=== PATIENT | female | born 1945 | race African-American/Black ===

== ENCOUNTER 2018-02-02 12:05 | Emergency (ER) | payer MEDICARE, BC ==
--- NOTE | 2018-02-02 13:09 | RAD ---
PORTABLE AP CHEST X-RAY: 02/02/2018 HISTORY: Syncope. COMPARISON: 08/01/2016. FINDINGS: There is linear and patchy parenchymal changes seen at the left lung base with minimal linear and pat angel densities in the right mid lung zone and right lung base. Pneumonia or aspiration pneumonitis at the left lung base cannot be excluded although atelectasis is also a differential consideration. Ca rdiac silhouette is magnified by projection but does appear mildly enlarged. The pulmonary vasculatu re is within normal limits. Lungs are clear. No other interval change. IMPRESSION: 1. Patchy interstitial and patchy parenchymal changes at left lung base which may be related to atele ctasis, pneumonia, or aspiration pneumonitis. 2. Subsegmental atelectasis at the right lung base. 3. Cardiomegaly. POS: BARNEY
[2018-02-02 13:46] LABS: Hemoglobin 10.4 g/dL (12.0-16.0); Mean Corpuscular HGB CONC 31.3 g/dL (32.0-36.0); Mean Corpuscular Hemoglobin 30.4 pg (27.0-31.0); Mean Corpuscular Volume 97.1 fl (81.0-99.0); Platelet Count 98 thou/uL (130-400); RBC Distribution Width 16.9 % (11.5-14.5); Red Blood Cell (RBC) Count 3.42 mill/uL (4.20-5.40); White Blood Cell (WBC) Count 10.7 thou/uL (4.8-10.8)
[2018-02-02 13:58] LABS: ALT (SGPT) Less than 7 U/L (8-55); AST (SGOT) 13 U/L (5-34); Albumin 3.6 g/dL (3.4-4.8); Alkaline Phosphatase 95 U/L (40-150); Anion Gap 20 mmol/L (10-20); BUN (Urea Nitrogen) 35 mg/dL (9.8-20.1); Bilirubin, Total 0.5 mg/dL (0.2-1.2); CK (CPK) 21 U/L (29-168); Calc. Creatinine Clearance 0 mL/min (70-130); Calcium 9.5 mg/dL (7.8-10.44); Carbon Dioxide 26 mmol/L (23-31); Chloride 92 mmol/L (98-107); Estimated GFR-MDRD 8; Globulin 3.3 g/dL (2.4-3.5); Glucose 104 mg/dL (83-110); Potassium 4.1 mmol/L (3.5-5.1); Protein, Total 6.9 g/dL (6.0-8.3); Sodium 134 mmol/L (136-145)
[2018-02-02 14:03] LABS: CKMB 0.7 ng/mL (0-6.6); Troponin I 0.096 ng/mL (< 0.028)
[2018-02-02 14:04] LABS: #Lymphocytes 0.9 thou/uL (1.20-3.40); #Monocytes 0.7 thou/uL (0.11-0.59); #Neutrophils 8.9 thou/uL (1.40-6.50); %Basophils 0.2 % (0.0-1.0); %Eosinophils 0.3 % (0.0-10.0); %Lymphocytes 8.8 % (21.0-51.0); %Monocytes 6.9 % (0.0-10.0); %Neutrophils 83.8 % (42.0-75.0); PLT Morphology Comment Appears Decreased
== END 2018-02-02 16:12 | disposition home or self-care (01) ==
LOC: ERS 12:05
DX: R55 Syncope and collapse (principal); E03.9 Hypothyroidism, unspecified; E78.5 Hyperlipidemia, unspecified; I13.2 Hypertensive heart and chronic kidney disease with heart failure and with stage 5 chronic kidney disease, or end stage renal disease; I50.9 Heart failure, unspecified; N18.6 End stage renal disease; I25.10 Atherosclerotic heart disease of native coronary artery without angina pectoris; M81.0 Age-related osteoporosis without current pathological fracture; E21.3 Hyperparathyroidism, unspecified; M48.00 Spinal stenosis, site unspecified
CPT/HCPCS: 36415; 71045; 80053; 82550; 82553; 84484; 85025; 93005

== ENCOUNTER 2018-02-04 11:08 | Inpatient (IN) | payer MEDICARE, BC ==
--- NOTE | 2018-02-04 12:14 | RAD ---
PORTABLE CHEST: HISTORY: Shortness of breath. COMPARISON: 02/02/2018 FINDINGS: Heart size is enlarged. There are some chronic appearing lung changes without evidence of overt fail ure or focal infiltrates. IMPRESSION: Cardiomegaly with some mild vascular prominence but no signs of overt failure. Linear change in the lung bases appears to represent scar. POS: OBIE
[2018-02-04 13:07] LABS: #Monocytes 0.5 thou/uL (0.11-0.59); #Neutrophils 4.1 thou/uL (1.40-6.50); %Basophils 0.1 % (0.0-1.0); %Eosinophils 0.6 % (0.0-10.0); %Monocytes 8.9 % (0.0-10.0); %Neutrophils 73.4 % (42.0-75.0); Hemoglobin 10.8 g/dL (12.0-16.0); Mean Corpuscular HGB CONC 31.4 g/dL (32.0-36.0); Mean Corpuscular Hemoglobin 30.5 pg (27.0-31.0); Mean Corpuscular Volume 97.1 fl (81.0-99.0); Mean Platelet Volume 11.1 fL (7.4-10.4); Platelet Count 100 thou/uL (130-400); RBC Distribution Width 16.9 % (11.5-14.5); Red Blood Cell (RBC) Count 3.55 mill/uL (4.20-5.40); White Blood Cell (WBC) Count 5.6 thou/uL (4.8-10.8)
[2018-02-04 13:32] LABS: ALT (SGPT) Less than 7 U/L (8-55); AST (SGOT) 10 U/L (5-34); Albumin 3.9 g/dL (3.4-4.8); Alkaline Phosphatase 95 U/L (40-150); Anion Gap 20 mmol/L (10-20); BUN (Urea Nitrogen) 48 mg/dL (9.8-20.1); Bilirubin, Total 0.5 mg/dL (0.2-1.2); Calc. Creatinine Clearance 0 mL/min (70-130); Calcium 9.7 mg/dL (7.8-10.44); Carbon Dioxide 28 mmol/L (23-31); Chloride 91 mmol/L (98-107); Estimated GFR-MDRD 6; Globulin 3.4 g/dL (2.4-3.5); Glucose 131 mg/dL (83-110); Potassium 4.2 mmol/L (3.5-5.1); Protein, Total 7.3 g/dL (6.0-8.3); Sodium 135 mmol/L (136-145)
--- NOTE | 2018-02-04 16:30 | PDOC.EVN ---
Event Note - Event Note Event Note: I personally evaluated the patient and discussed the management with Dr. Schultz on 02/04/18. I agree with the History, Examination, Assessment and Plan documented above with any addition or exceptions noted below. Patient noncompliant dialysis, is fluid overloaded. Hypoxia improved on O2. Dr. Ruano consulted.
[2018-02-04] MEDS ORDERED: Ondansetron ODT 4 MG TAB SL PRN (17:21)
[2018-02-04] MEDS ORDERED: Acetaminophen 325 MG TAB PO PRN ×2 (17:21→17:46)
[2018-02-04] MEDS ORDERED: Ondansetron HCl/PF 4 MG/2 ML Vial IVP PRN (17:21)
[2018-02-04] MEDS ORDERED: Dextrose 50% Abboject 50 ML SYRINGE SLOW IVP PRN (17:46)
[2018-02-04] MEDS ORDERED: Docusate 100 MG CAP PO PRN (17:46)
[2018-02-04] MEDS ORDERED: Nitroglycerin 0.4 MG TAB (25 Tab Bottle) SL PRN (17:46)
[2018-02-04] MEDS ORDERED: Ondansetron ODT 4 MG TAB PO PRN (17:46)
[2018-02-04] MEDS ORDERED: Dextrose 5% in Water 1,000 ML IV PRN (17:46)
[2018-02-04] MEDS ORDERED: HumaLOG 300 UNITS/3 ML VIAL SC PRN ×2 (17:46)
[2018-02-04 19:49] LABS: HBSAg Index 0.23 S/CO (0-0.99); Hep B Surf Ag Non-Reactive S/CO (NonReactive)
[2018-02-04] MEDS ORDERED: Simvastatin 40 MG TAB PO SCH (21:00)
[2018-02-05] MEDS: Heparin 5,000 UNITS/ML VIAL SC SCH ×2 (00:23→07:41)
[2018-02-05] MEDS: Isosorbide Dinitrate 20 MG TAB PO SCH ×2 (00:23→07:41)
[2018-02-05] MEDS: Sevelamer Carbonate 800 MG TAB PO SCH ×2 (05:21→07:41)
[2018-02-05] MEDS ORDERED: Levothyroxine Sodium 100 MCG TAB PO SCH (06:00)
--- NOTE | 2018-02-05 06:37 | HP-2 ---
DATE OF ADMISSION: 02/04/2018 Patient was seen at 2:57 p.m. PRIMARY CARE PHYSICIAN: Dr. Allan Leach. ATTENDING: Ivon Liao D.O. RESIDENT: Nando Schultz D.O. CODE STATUS: DNR. HISTORIAN: Patient. SPECIALIST: Dr. Ruano, Nephrology. CHIEF COMPLAINT: Needs dialysis. HISTORY OF PRESENT ILLNESS: This is a 72-year-old -[place] female with past medical history of end-stage renal disease on Friday, Friday, Friday dialysis. She reports she needs dialysis because she is short of breath from detox with even minimal activity. She has not had dialysis since last Friday, because her blood pressure has been too low. She also reports slow heart rate. She did report nausea, vomiting, diarrhea earlier in the week, which she thinks is due to eating bad salsa and it has now resolved. She does report generalized weakness. PAST MEDICAL HISTORY: Includes, 1. ESRD on dialysis. 2. Congestive heart failure. 3. Coronary artery disease, status post stent. 4. Peripheral vascular disease. 5. Sciatica. 6. Diabetes mellitus, type 2. 7. Osteoporosis. PAST SURGICAL HISTORY: 1. Patient reports she has 6 cardiac stents. 2. Dialysis fistula of the right arm. 3. Bilateral BKAs. ALLERGIES: No known drug allergies. HOME MEDICATIONS: 1. Aspirin 325 mg p.o. daily. 2. Zofran, no dose given. 3. Docusate 100 mg 2 caps p.o. daily at bedtime. 4. Nitrostat 0.4 mg tablet 1 tab sublingual every 5 minutes x3 doses for chest pain. 5. Renvela 800 mg 1 tab b.i.d. with meals. 6. Isosorbide dinitrate 10 mg p.o. b.i.d. 7. Levothyroxine 100 mcg p.o. daily. 8. Carvedilol 3.125 mg p.o. daily. 9. Clopidogrel 75 mg p.o. daily. 10. Simvastatin 40 mg p.o. daily. FAMILY HISTORY: Mother had an [place]. SOCIAL HISTORY: Patient is a former smoker. She quit more than 30 years ago. No history of alcohol or drug use. Occupation: She is disabled, . She lives with her brother in [place]. She has 3 children. REVIEW OF SYSTEMS: General: Negative for fever, chills, weight change, appetite change, sleep change, night sweats, fatigue. Eyes: Negative for vision change or eye pain. ENT: Negative for nasal congestion, rhinorrhea, or sore throat. Respiratory: Positive for cough. Negative for congestion. Positive for shortness of breath. Positive for exercise intolerance. Cardiovascular: Positive for orthopnea. Negative for chest pain, palpitations. Positive for orthopnea. Negative for PND, edema. GI: Negative for nausea, vomiting, diarrhea, constipation, abdominal pain, GI bleeding. : Negative for dysuria, polyuria. Skin: Negative for rashes, lesions, jaundice , itching. Musculoskeletal: Negative for pain, tenderness, stiffness, swelling. Neurologic: Positive for weakness. Negative for numbness, syncope, seizure. Psychiatric: Negative for anxiety or depression. PHYSICAL EXAMINATION: VITAL SIGNS: Blood pressure 127/76, pulse 52, respiratory rate 18, T-max 98.7, pulse oximetry 92% on 2 liters, current weight 65.77 kilograms. GENERAL: Patient is alert and oriented x4, in no apparent distress, well- developed and appropriately interactive. EYES: PERRLA, EOMI. Conjunctivae within normal limits. ENT: Tympanic membranes pearly carrero without bulging or erythema. Nasal mucosa within normal limits. Oropharynx within normal limits. NECK: Supple with no lymphadenopathy, thyromegaly, or bruit. CARDIOVASCULAR: Bradycardic, regular rhythm. No murmurs, gallops auscultated. Radial pulses palpable and equal bilaterally. RESPIRATORY: Normal effort, no retractions. Clear to auscultation bilaterally. SKIN: Warm, dry with no cyanosis or lesions. ABDOMEN: Soft, nontender to palpation. Bowel sounds positive x4. No mass or distention. EXTREMITIES: No clubbing, cyanosis, or edema. MUSCULOSKELETAL: Tone within normal limits. Muscle strength 5/5. Full range of motion. Patient has had bilateral [id number] amputations. NEURO: No focal deficits. Sensation within normal limits. Deep tendon reflexes 2+/4. Cranial nerves II-XII intact. GCS 15. PSYCHIATRIC: Mood and affect appropriate. LABORATORY DATA: 1. CBC: White blood cell count 5.6, hemoglobin 10.8, hematocrit 34.5, platelets 100. 2. CMP: Sodium 135, potassium 4.2, chloride 91, bicarbonate 28, BUN 48, creatinine 7.48, glucose 131, calcium 9.7. Total protein 7.3, albumin 3.9. AST 10, ALT 7, alkaline phosphatase 95, bilirubin 0.5. 3. EKG shows sinus bradycardia, it is unchanged from previous EKG. 4. Chest x-ray shows mild vascular prominence, otherwise no acute findings. ASSESSMENT AND PLAN: A 72-year-old -[place] female with end-stage renal disease on dialysis who presents with: 1. Acute fluid overload, placed in observation. Dr. Ruano was consulted for dialysis. He was in the emergency department to evaluate the patient at the time of my evaluation. She had no electrolyte abnormalities or respiratory distress. She was mildly hypoxic on arrival to the ED, resolved with oxygen supplementation. 2. End-stage renal disease on dialysis. Dr. Ruano consulted. 3. Hypertension. Home medications; however, we will hold Coreg and clonidine. 4. Asymptomatic bradycardia, Coreg. 5. Hyperlipidemia, home medications. 6. Hypothyroidism, home levothyroxine. 7. Coronary artery disease, home medications. 8. Congestive heart failure, mildly fluid overloaded dialysis, is scheduled for today. 9. Diabetes mellitus, type 2. Accu-Cheks and sliding scale insulin. 10. Code status: DNR. The patient expresses when I asked her if she had ever discussed the code status with her doctor before. 11. Activity: As tolerated. Fall precautions. 12. Prophylaxis. Heparin. DISPOSITION AND LENGTH OF STAY: Expect 1-day stay, patient will be placed in observation, anticipate discharge home after stay. Symptomatic medications will be provided. History of physical exam as well as management discussed with Dr. Ivon Liao. [facility] CENTERMarv
--- NOTE | 2018-02-05 08:56 | PDOC.FM ---
- Subjective Subjective: This morning patient states her dizziness is resolved totally. She denies any pain. She denies shortness of breath. She denies fevers, chills, or sweats. She denies palpiations or syncope since being in the hospital. She feels ready to go home. - Objective Vital Signs & Weight: Vital Signs (12 hours) Temp Pulse Resp BP Pulse Ox 02/05/18 07:44 98.0 F 62 18 02/05/18 07:30 98.3 F 65 16 125/80 92 L 02/05/18 04:09 98.0 F 62 18 130/73 92 L 02/05/18 00:00 98.3 F 61 20 118/76 92 L Result Diagrams: 02/04/18 12:56 02/04/18 12:56 <Isaac Bowie - Last Filed: 02/05/18 13:45> - Objective Vital Signs & Weight: Vital Signs (12 hours) Temp Pulse Resp BP Pulse Ox 02/05/18 11:35 98.2 F 64 16 129/67 97 02/05/18 07:44 98.0 F 62 18 02/05/18 07:30 98.3 F 65 16 125/80 92 L 02/05/18 04:09 98.0 F 62 18 130/73 92 L Result Diagrams: 02/04/18 12:56 02/04/18 12:56 <Home Jacobson - Last Filed: 02/05/18 16:03> Phys Exam - Physical Examination Constitutional: NAD HEENT: PERRLA, moist MMs Neck: no nodes, full ROM Respiratory: no wheezing, clear to auscultation bilateral Cardiovascular: RRR, no significant murmur Gastrointestinal: soft, non-tender, no distention, positive bowel sounds Musculoskeletal: no edema, pulses present Neurological: non-focal strength 4/4 in upper extremities Lymphatic: no nodes Psychiatric: normal affect, A&O x 3 Skin: no rash, cap refill <2 seconds <Isaac Bowie - Last Filed: 02/05/18 13:45> Dx/Plan (1) Status post below knee amputation of right lower extremity Code(s): Z89.511 - ACQUIRED ABSENCE OF RIGHT LEG BELOW KNEE Status: Acute (2) CAD (coronary artery disease) Code(s): I25.10 - ATHSCL HEART DISEASE OF [place] CORONARY ARTERY W/O ANG PCTRS Status: Chronic (3) Diabetes type 2, controlled Code(s): E11.9 - TYPE 2 DIABETES MELLITUS WITHOUT COMPLICATIONS Status: Chronic (4) Dyslipidemia Code(s): E78.5 - HYPERLIPIDEMIA, UNSPECIFIED Status: Chronic (5) ESRD (end stage renal disease) Code(s): N18.6 - END STAGE RENAL DISEASE Status: Chronic (6) Peripheral vascular disease of lower extremity with ulceration Code(s): I73.9 - PERIPHERAL VASCULAR DISEASE, UNSPECIFIED; L97.909 - NON-PRS CHRONIC ULC UNSP PRT OF UNSP LOW LEG W UNSP SEVERITY Status: Chronic - Plan Plan: Fluid overload 2/2 missed dialysis, ESRD - emergency dialysis last PM - lungs CTA this AM, patient denies weakness - Nephro consulted, recs appreciated - ok for d/c # HTN - currently on no HTN medications 2/2 to issues with syncope, bradycardia - reviewed w/ Dr. Ruano # HLD - statin # Hypothyroid - synthroid # Hx CAD - statin, ASA # CHF - currently on no HTN meds 2/2 issues with syncope, bradycardia # DM2 - SSI Dispo: ok for d/c today <Isaac Bowie - Last Filed: 02/05/18 13:45> Attending Addendum - Attending Addendum Date/Time: 02/05/18 1603 I personally evaluated the patient and discussed the management with Dr. Bowie. I agree with the History, Examination, Assessment and Plan documented above with any addition or exceptions noted below. <Home Jacobson - Last Filed: 02/05/18 16:03>
[2018-02-05] MEDS ORDERED: Aspirin 325 MG TAB PO SCH (09:00)
[2018-02-05] MEDS ORDERED: Clopidogrel Bisulfate 75 MG TAB PO SCH (09:00)
--- NOTE | 2018-02-05 10:02 | PRG ---
DATE OF SERVICE: 02/05/2018 The patient was seen and examined, seems to be doing much better. PHYSICAL EXAMINATION: VITAL SIGNS: Afebrile with temperature 98, pulse 62, respiratory rate 18, blood pressure 125/80. HEENT: Unremarkable with moist oral mucosa. Neck was supple. No conjunctival injection or icterus. CARDIOVASCULAR: First and second heart sounds were heard. RESPIRATORY: Clear to auscultation. DIGESTIVE: Revealed a benign abdomen with positive bowel sounds. EXTREMITIES: No peripheral edema. SKIN: No new gross rash. LYMPHATICS: No peripheral lymphadenopathy. IMPRESSION: 1. End-stage renal disease, hemodialysis dependent. 2. Syncope, likely in the context of symptomatic bradycardia/hypotension. 3. Peripheral vascular disease, status post bilateral amputation. PLAN: 1. The patient did very well with hemodialysis yesterday and from the renal standpoint, there is no further indication for renal replacement therapy. 2. The patient's antihypertensive medications have been on hold and patient is still maintaining goo d hemodynamics. Therefore, we will recommend discontinuing antihypertensive medications for now and will be followed up as an outpatient. 3. From the renal standpoint, the patient is good for discharge.
[2018-02-05 12:04] VITALS: BP 129/67; TEMP 98.2
[2018-02-06] MEDS ORDERED: Prevnar 13-Val Conj/PF 0.5 ML SYRINGE IM ONE (09:00)
--- NOTE | 2018-02-06 10:57 | DIS-2 ---
DATE OF ADMISSION: 02/04/2018 DATE OF DISCHARGE: 02/05/2018 RESIDENT: Dr. Isaac Bowie. ADMITTING ATTENDING: Dr. Joyce Arauz. DISCHARGE ATTENDING: Dr. Home Jacobson. CONSULTATIONS: Nephrology, Dr. Ruano. PROCEDURES: Hemodialysis. PRIMARY DIAGNOSIS: Acute fluid overload secondary to end-stage renal disease. SECONDARY DIAGNOSES: Hypertension, hyperlipidemia, hypothyroidism, history of coronary artery diseas e, congestive heart failure, and diabetes mellitus type 2. DISCHARGE MEDICATIONS: Cinacalcet 30 mg once daily, Plavix 75 mg once daily, Flexeril 10 mg t.i.d., Synthroid 100 mcg daily, nitroglycerin 0.4 mg p.r.n., atorvastatin 40 mg nightly, and tramadol 50 mg p.o. b.i.d. p.r.n. DISCONTINUED MEDICATIONS: Imdur 10 mg and carvedilol 3.125 mg. HISTORY OF PRESENT ILLNESS AND HOSPITAL COURSE: This is a 72-year-old -[place] female with p ast medical history of end-stage renal disease on Friday, Friday, Friday dialysis schedule reporte d to the ER stating that she needed dialysis because she was short of breath. She states that her la st dialysis appointment was missed because she was having syncope, it had been 5 days since she had h ad dialysis. The patient received emergent hemodialysis overnight. In the morning, the patient reported that she was feeling no dizziness, lightheadedness, nausea, or vomiting. She stated that she had no more swel ling than usual. I spoke to her literacy coach, Dr. Ruano, who recommended holding all blood pres sure medications at this time because of issues with syncope, bradycardia, and hypotension. He recom mends close follow up with PCP, Dr. Leach. DISPOSITION: Stable. DISCHARGE INSTRUCTIONS: 1. Location: Home. 2. Diet: Heart healthy. ACTIVITY: As tolerated. FOLLOWUP: Follow up with Dr. Allan Leach in 3-[address] Ruano, literacy coach in 1-2 weeks .
--- NOTE | 2018-02-06 14:43 | PQF ---
LOWELL MCCLOUD GABRIEL A MD [id number] [facility] [id number] CLINICAL DOCUMENTATION CLARIFICATION FORM: POST DISCHARGE Please exercise your independent, professional judgment in responding to the clarification form. Clinical indicators are provided on the bottom of this form for your review. Thank you. H&P states, "Acute fluid overload", "Congestive heart failure, mildly fluid overloaded, dialysis is scheduled for today". CXR 02/04 "Cardiomegaly with some mild vascular prominence but no signs of overt failure." Event Note 02/04 "Patient noncompliant dialysis, is fluid overloaded." PN 02/05 "Fluid overload 2/2 missed dialysis, ESRD. Emergency dialysis last PM".; "CHF currently on no HTN meds 2/2 issues with syncope, bradycardia" Please check appropriate box(s): [ x ] NON-CARDIOGENIC Fluid Overload due to __ESRD [ ] Compensated Heart Failure [ ] Decompensated Heart Failure [ ] TYPE: [ ] Systolic / HFrEF [ ] Diastolic / HFpEF [ ] Combined Systolic / Diastolic [ ]ACUITY [x ] Acute [ ] Acute on Chronic [ ] Chronic [ ] Other diagnosis [ ] Unable to determine In addition, please specify: Present on Admission (POA): [ x ] Yes [ ] No [ ] Unable to determine For continuity of documentation, please document condition throughout progress notes and discharge summary. Thank You. CLINICAL INDICATORS - SIGNS / SYMPTOMS / LABS Dyspnea, Hypoxia Peripheral edema Orthopnea / SOB / dyspnea Volume overload Missed dialysis RISKS: History of CAD/ischemic heart disease ESRD CHF Hypertension Diabetes TREATMENTS: Hemodialysis Emergent Cardiac monitoring / telemetry Oxygen (This form is maintained as a part of the permanent medical record) 2014 [employer], [employer]. All Rights Reserved [email or web address] [phone] [place]
--- NOTE | 2018-02-07 17:34 | EKG ---
Test Reason : Blood Pressure : / mmHG Vent. Rate : 056 BPM Atrial Rate : 056 BPM P-R Int : 154 ms QRS Dur : 142 ms QT Int : 498 ms P-R-T Axes : 094 220 -69 degrees QTc Int : 480 ms Suspect arm lead reversal, interpretation assumes no reversal Sinus bradycardia Right bundle branch block , plus right ventricular hypertrophy Possible Lateral infarct , age undetermined T wave abnormality, consider inferior ischemia Abnormal ECG Confirmed by HOWARD RONQUILLO, KEVIN ([id number]), news editor YISEL COLON ([id number]) on 02/07/2018 5:33:48 PM Referred By: Confirmed By:KEVIN LAWRENCE MD
== END 2018-02-05 13:43 | disposition home health service (06) | DRG 640 ==
LOC: ERS 11:08 → T4-A 14:28
PROVIDERS: ADMIT Family Medicine; ATTEND Family Medicine
PROC: 5A1D70Z Performance of Urinary Filtration, Intermittent, Less than 6 Hours Per Day (ICD-10-PCS; principal; 2018-02-04)
DX: E87.70 Fluid overload, unspecified (principal); N18.6 End stage renal disease; I13.2 Hypertensive heart and chronic kidney disease with heart failure and with stage 5 chronic kidney disease, or end stage renal disease; E11.22 Type 2 diabetes mellitus with diabetic chronic kidney disease; E11.51 Type 2 diabetes mellitus with diabetic peripheral angiopathy without gangrene; I95.9 Hypotension, unspecified; R00.1 Bradycardia, unspecified; R09.02 Hypoxemia; Z91.15 Patient's noncompliance with renal dialysis; Z87.891 Personal history of nicotine dependence; Z89.512 Acquired absence of left leg below knee; Z89.511 Acquired absence of right leg below knee; I25.10 Atherosclerotic heart disease of native coronary artery without angina pectoris; Z95.5 Presence of coronary angioplasty implant and graft; Z99.2 Dependence on renal dialysis; E78.5 Hyperlipidemia, unspecified; E03.9 Hypothyroidism, unspecified; Z66 Do not resuscitate; R55 Syncope and collapse
CPT/HCPCS: 36415; 36416; 71045; 80053; 82550; 82553; 84484; 85025; 87340; 90935; 93005; G0257; J1644

== ENCOUNTER 2018-03-19 09:44 | Day surgery (SDC) | payer MEDICARE, BC ==
--- NOTE | 2018-03-19 14:53 | OP ---
PROCEDURE PERFORMED: Esophagogastroduodenoscopy with biopsy. SURGEON: Jovi Goldsmith M.D. ANESTHESIA: Medication given per Anesthesiology Department. PREOPERATIVE DIAGNOSIS: History of melena suggestive of upper gastrointestinal bleed. POSTOPERATIVE DIAGNOSES: 1. Severe mid body erosive gastritis. 2. A 4 mm antral ulcer. PROCEDURE IN DETAIL: A written consent was obtained prior to procedure. After adequate sedation, th e forward-viewing endoscope was advanced down the stomach under direct vision to the second portion o f duodenum. Both the second portion and the bulb appeared normal. The pylorus was patent. A 4 mm u lcer was seen in the gastric antrum with black eschar. In the mid body, linear erosive erosions were seen. The cardiac and fundus appeared normal. Retroflexion did not need any abnormality. Biopsies obtained from antrum for H. pylori. The GE junction was located at 40 cm from the incisors. The di stal, mid, and upper esophagus appeared normal. ASSESSMENT: 1. Mid body erosive gastritis, moderate to severe. 2. A 4 mm antral ulcer, no stigmata of bleeding. PLAN: 1. Await H. pylori, resolved. 2. Pantoprazole 40 mg p.o. q.a.m.
[2018-03-19] MEDS ORDERED: PROPOFOL 200 MG/20 ML VIAL ONE (16:34)
[2018-03-19] MEDS ORDERED: Lidocaine 1% PF 5 ML VIAL ONE (16:34)
== END 2018-03-19 14:00 | disposition home or self-care (01) ==
LOC: SDC 09:44
PROVIDERS: ATTEND Internal Medicine Gastroenterology
PROC: 0DB68ZX Excision of Stomach, Via Natural or Artificial Opening Endoscopic, Diagnostic (ICD-10-PCS; principal; 2018-03-19)
DX: K29.50 Unspecified chronic gastritis without bleeding (principal); K25.7 Chronic gastric ulcer without hemorrhage or perforation; I13.0 Hypertensive heart and chronic kidney disease with heart failure and stage 1 through stage 4 chronic kidney disease, or unspecified chronic kidney disease; E11.22 Type 2 diabetes mellitus with diabetic chronic kidney disease; N18.9 Chronic kidney disease, unspecified; I50.9 Heart failure, unspecified; I25.10 Atherosclerotic heart disease of native coronary artery without angina pectoris; E78.00 Pure hypercholesterolemia, unspecified; E03.9 Hypothyroidism, unspecified; Z79.82 Long term (current) use of aspirin; Z79.899 Other long term (current) drug therapy; Z98.890 Other specified postprocedural states; Z86.010 Personal history of colon polyps
CPT/HCPCS: 36416; 88305; 88312; J2001; J2704

== ENCOUNTER 2018-12-05 09:38 | Emergency (ER) | payer MEDICARE, BC | END 2018-12-05 12:28 | disposition home or self-care (01) | LOC: ERS 09:38 | DX: T82.838A Hemorrhage due to vascular prosthetic devices, implants and grafts, initial encounter (principal); E11.9 Type 2 diabetes mellitus without complications; Z86.718 Personal history of other venous thrombosis and embolism; E03.9 Hypothyroidism, unspecified; E05.90 Thyrotoxicosis, unspecified without thyrotoxic crisis or storm; I13.2 Hypertensive heart and chronic kidney disease with heart failure and with stage 5 chronic kidney disease, or end stage renal disease; N18.6 End stage renal disease; I50.9 Heart failure, unspecified; I25.10 Atherosclerotic heart disease of native coronary artery without angina pectoris; M81.0 Age-related osteoporosis without current pathological fracture; Z79.82 Long term (current) use of aspirin; Z79.899 Other long term (current) drug therapy | CPT/HCPCS: 99284 ==

== ENCOUNTER 2019-01-13 20:06 | Emergency (ER) | payer MEDICARE, BC ==
--- NOTE | 2019-01-13 20:47 | RAD ---
PORTABLE CHEST: 01/13/19 HISTORY: Chest pain, left arm pain. COMPARISON: 02/04/18 study. A right subclavian and brachiocephalic stent is present. The heart size is enlarged. Pulmonary vessel s are prominent but stable as compared to the prior exam. No overt edema. Coronary stent is noted. IMPRESSION: 1. Cardiomegaly. 2. Stable overall appearance to the chest. 1. POS: [facility]
[2019-01-13 21:01] LABS: #Lymphocytes 0.9 thou/uL (1.20-3.40); #Monocytes 0.4 thou/uL (0.11-0.59); #Neutrophils 2.5 thou/uL (1.40-6.50); %Basophils 0.5 % (0.0-1.0); %Eosinophils 1.1 % (0.0-10.0); %Lymphocytes 23.3 % (21.0-51.0); %Monocytes 10.8 % (0.0-10.0); %Neutrophils 64.2 % (42.0-75.0); Hemoglobin 12.1 g/dL (12.0-16.0); Mean Corpuscular HGB CONC 29.9 g/dL (32.0-36.0); Mean Corpuscular Hemoglobin 27.3 pg (27.0-31.0); Mean Corpuscular Volume 91.1 fL (78.0-98.0); Platelet Count 93 thou/uL (130-400); RBC Distribution Width 16.3 % (11.5-14.5); Red Blood Cell (RBC) Count 4.45 mill/uL (4.20-5.40); White Blood Cell (WBC) Count 3.9 thou/uL (4.8-10.8)
[2019-01-13 21:20] LABS: ALT (SGPT) Less than 7 U/L (8-55); AST (SGOT) 7 U/L (5-34); Albumin 3.8 g/dL (3.4-4.8); Alkaline Phosphatase 100 U/L (40-150); Anion Gap 14 mmol/L (10-20); BUN (Urea Nitrogen) 11 mg/dL (9.8-20.1); Bilirubin, Total 0.5 mg/dL (0.2-1.2); Calc. Creatinine Clearance 0 mL/min (70-130); Calcium 10.1 mg/dL (7.8-10.44); Carbon Dioxide 35 mmol/L (23-31); Chloride 94 mmol/L (98-107); Estimated GFR-MDRD 15; Globulin 3.2 g/dL (2.4-3.5); Glucose 99 mg/dL (83-110); Potassium 3.6 mmol/L (3.5-5.1)
[2019-01-13 21:24] LABS: Sodium 139 mmol/L (136-145)
[2019-01-13 21:40] LABS: CKMB 1.2 ng/mL (0-6.6)
== END 2019-01-13 22:03 | disposition left against medical advice (07) ==
LOC: ERS 20:06
DX: I25.10 Atherosclerotic heart disease of native coronary artery without angina pectoris (principal); Z86.718 Personal history of other venous thrombosis and embolism; E03.9 Hypothyroidism, unspecified; E78.5 Hyperlipidemia, unspecified; I13.2 Hypertensive heart and chronic kidney disease with heart failure and with stage 5 chronic kidney disease, or end stage renal disease; I50.9 Heart failure, unspecified; N18.6 End stage renal disease; Z99.2 Dependence on renal dialysis; E11.22 Type 2 diabetes mellitus with diabetic chronic kidney disease; M81.0 Age-related osteoporosis without current pathological fracture; Z79.899 Other long term (current) drug therapy; Z79.82 Long term (current) use of aspirin
CPT/HCPCS: 36415; 71045; 80053; 82553; 84484; 85025; 93005

== ENCOUNTER 2019-01-20 09:50 | Observation (INO) | payer MEDICARE, BC ==
[2019-01-20] MEDS ORDERED: Lidocaine 1% (PF) 30 ML VIAL ONE (10:28)
[2019-01-20 10:41] LABS: INR-International Normal Ratio 1.2; PTT 33.3 SEC (22.9-36.1)
[2019-01-20 11:04] LABS: ALT (SGPT) Less than 7 U/L (8-55); AST (SGOT) 7 U/L (5-34); Albumin 3.4 g/dL (3.4-4.8); Alkaline Phosphatase 82 U/L (40-150); Anion Gap 15 mmol/L (10-20); BUN (Urea Nitrogen) 20 mg/dL (9.8-20.1); Bilirubin, Total 0.4 mg/dL (0.2-1.2); Calc. Creatinine Clearance 0 mL/min (70-130); Carbon Dioxide 29 mmol/L (23-31); Chloride 96 mmol/L (98-107); Estimated GFR-MDRD 9; Globulin 2.9 g/dL (2.4-3.5); Glucose 140 mg/dL (83-110); Potassium 4.2 mmol/L (3.5-5.1); Protein, Total 6.3 g/dL (6.0-8.3); Sodium 136 mmol/L (136-145)
[2019-01-20 11:09] LABS: #Eosinphils 0.1 thou/uL (0.0-0.7); #Lymphocytes 1.3 thou/uL (1.20-3.40); #Monocytes 0.4 thou/uL (0.11-0.59); #Neutrophils 2.4 thou/uL (1.40-6.50); %Eosinophils 1.7 % (0.0-10.0); %Lymphocytes 31.2 % (21.0-51.0); %Monocytes 9.5 % (0.0-10.0); %Neutrophils 56.7 % (42.0-75.0); Band 1 % (5-11); Eosinophils 5 % (0-10); Hemoglobin 10.2 g/dL (12.0-16.0); Hypochromia SLIGHT = 6-15 cells (100X) (0-5/hpf); Lymphocytes 30 % (21-51); MDiff Complete? YES; Mean Corpuscular HGB CONC 29.1 g/dL (32.0-36.0); Mean Corpuscular Hemoglobin 26.8 pg (27.0-31.0); Mean Corpuscular Volume 92.2 fL (78.0-98.0); Mean Platelet Volume 12.5 fL (7.4-10.4); Monocytes 8 % (0-10); Neutrophil 54 % (42-75); Platelet Count 121 thou/uL (130-400); Platelet Morphology Comment Appears Decreased; Polychromasia SLIGHT = 2-3 cells (100X) (0-2/hpf); RBC Distribution Width 16.4 % (11.5-14.5); Reactive Lymphocytes 1 % (0-10); Red Blood Cell (RBC) Count 3.82 mill/uL (4.20-5.40); Reflex for Review?? YES; Schistocytes MODERATE= 6-15 cells (100X) (0-1/hpf); White Blood Cell (WBC) Count 4.2 thou/uL (4.8-10.8)
--- NOTE | 2019-01-20 11:33 | PDOC.FPRHP ---
- History of Present Illness Chief Complaint: bleeding fistula History of Present Illness: 73yo female with pmh of ESRD on HD presented to ED for evaluation of bleeding fistula. Follows with Dr Ruano outpt. HD MWF. Has not had dialysis since Friday. She states she had not cleaned fistula site for 2 weeks and when she started to clean it this morning it started bleeding. She states this has happened x2 before. She states she did have chills today and dizziness this AM. EMS placed a tourniquet about 0857. Stitch placed by Dr Ruano in ED with hemostasis. Plan for fistula revision in AM. - Allergies/Adverse Reactions Allergies Allergy/AdvReac Type Severity Reaction Status Date / Time No Known Drug Allergies Allergy Verified 03/18/18 15:13 - Home Medications Medication Instructions Recorded Confirmed Type Cinacalcet HCl [Sensipar] 30 mg PO DAILY 08/20/16 03/18/18 History Cyclobenzaprine [Flexeril] 10 mg PO TID PRN 08/20/16 03/18/18 History Levothyroxine Sodium [Synthroid] 100 mcg PO HS 08/20/16 03/18/18 History Nitroglycerin [Nitrostat] 0.4 mg SL Q5MIN PRN 08/20/16 03/18/18 History Simvastatin [Zocor] 40 mg PO HS 08/20/16 03/18/18 History traMADol HCl [Tramadol HCl] 50 mg PO BID PRN 08/20/16 03/18/18 History Acetaminophen 500 mg PO Q6HR PRN 03/18/18 03/18/18 History Aspirin 325 mg PO DAILY 03/18/18 03/18/18 History Carvedilol 1 tab PO BID 03/18/18 03/18/18 History Dicyclomine HCl 20 mg PO DAILY PRN 03/18/18 03/18/18 History Hydrocortisone [Procto-Med Hc] 1 applic [place] DAILY PRN 03/18/18 03/18/18 History Isosorbide Dinitrate [Isordil] 1 tab PO HS 03/18/18 03/18/18 History Ondansetron [Zofran ODT] 4 mg PO Q8HR PRN 03/18/18 03/18/18 History Sevelamer Carbonate [Renvela] 1 tab PO DAILY 03/18/18 03/18/18 History - History PMHx: DM2, PVD, gangrene, sacral decub ulcer, dementia, dvt, gi bleed, IBS, CHF , HLD, HTN, ESRD on dialysis MWF, CAD PSHx: 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 denies: weight/appetite/sleep changes Eyes: denies: eye pain, vision changes ENT: denies: nasal congestion, rhinorrhea Respiratory: denies: cough, shortness of breath Cardiovascular: denies: chest pain, palpitation Gastrointestinal: reports: diarrhea, constipation. denies: nausea, vomiting Genitourinary: denies: dysuria, polyuria Skin: denies: rashes, lesions, itching Musculoskeletal: reports: other (bilateral BKA) Neurological: denies: numbness, seizure, weakness - Vital signs BP: 139/94 HR: 58 RR: 20 Tmax: 98.0 Pox: 100% on 2L Wt: 63.5kg - Physical Exam Constitutional: NAD, awake, alert and oriented, well developed HEENT: normocephalic and atraumatic, conjunctiva clear, other (poor dentition, dry MM) Neck: supple, trachea midline Heart: RRR, no murmurs/rubs/gallops Lungs: CTAB, no respiratory distress, good air movement Abdomen: soft, non-tender, bowel sounds present -Musculoskeletal: bilateral BKAs Neurological: no focal deficit Skin: good turgor, other (Right upper arm with bandage over fistula. Thrill felt in the right antecubital fossa) Psychiatric: normal mood and affect, good judgment and insight, intact recent and remote memory FMR H&P: Results - Labs Result Diagrams: 01/20/19 10:17 01/20/19 10:17 Lab results: WBC 4.2 thou/uL (4.8-10.8) L 01/20/19 10:17 Hgb 10.2 g/dL (12.0-16.0) L 01/20/19 10:17 Hct 35.2 % (36.0-47.0) L 01/20/19 10:17 MCV 92.2 fL (78.0-98.0) 01/20/19 10:17 Plt Count 121 thou/uL (130-400) L 01/20/19 10:17 Neutrophils % 56.7 % (42.0-75.0) 01/20/19 10:17 Band Neuts % (Manual) 1 % (5-11) L 01/20/19 10:17 Sodium 136 mmol/L (136-145) 01/20/19 10:17 Potassium 4.2 mmol/L (3.5-5.1) 01/20/19 10:17 Chloride 96 mmol/L (98-107) L 01/20/19 10:17 Carbon Dioxide 29 mmol/L (23-31) 01/20/19 10:17 BUN 20 mg/dL (9.8-20.1) 01/20/19 10:17 Creatinine 5.44 mg/dL (0.6-1.1) H 01/20/19 10:17 Glucose 140 mg/dL (83-110) H 01/20/19 10:17 Calcium 10.0 mg/dL (7.8-10.44) 01/20/19 10:17 Total Bilirubin 0.4 mg/dL (0.2-1.2) 01/20/19 10:17 AST 7 U/L (5-34) 01/20/19 10:17 ALT Less than 7 U/L (8-55) L 01/20/19 10:17 Alkaline Phosphatase 82 U/L (40-150) 01/20/19 10:17 Serum Total Protein 6.3 g/dL (6.0-8.3) 01/20/19 10:17 Albumin 3.4 g/dL (3.4-4.8) 01/20/19 10:17 FMR H&P: A/P - Problem List (1) Bleeding pseudoaneurysm of right brachiocephalic AV fistula Current Visit: Yes Status: Acute Code(s): T82.838A - HEMORRHAGE DUE TO VASCULAR PROSTH DEV/GRFT, INIT (2) CHF (congestive heart failure) Current Visit: Yes Status: Acute Code(s): I50.9 - HEART FAILURE, UNSPECIFIED (3) Status post below knee amputation of right lower extremity Current Visit: No Status: Acute Code(s): Z89.511 - ACQUIRED ABSENCE OF RIGHT LEG BELOW KNEE (4) CAD (coronary artery disease) Current Visit: No Status: Chronic Code(s): I25.10 - ATHSCL HEART DISEASE OF [place] CORONARY ARTERY W/O ANG PCTRS (5) Diabetes type 2, controlled Current Visit: No Status: Chronic Code(s): E11.9 - TYPE 2 DIABETES MELLITUS WITHOUT COMPLICATIONS (6) Dyslipidemia Current Visit: No Status: Chronic Code(s): E78.5 - HYPERLIPIDEMIA, UNSPECIFIED (7) ESRD (end stage renal disease) Current Visit: No Status: Chronic Code(s): N18.6 - END STAGE RENAL DISEASE (8) Hypertension Current Visit: No Status: Chronic Code(s): I10 - ESSENTIAL (PRIMARY) HYPERTENSION (9) Hypothyroidism Current Visit: No Status: Chronic Code(s): E03.9 - HYPOTHYROIDISM, UNSPECIFIED (10) Peripheral vascular disease of lower extremity with ulceration Current Visit: No Status: Chronic Code(s): I73.9 - PERIPHERAL VASCULAR DISEASE, UNSPECIFIED; L97.909 - NON-PRS CHRONIC ULC UNSP PRT OF UNSP LOW LEG W UNSP SEVERITY - Plan Ms Pepe is a 73yo female who presents for AV fistula bleed AV fistula bleed - Dr Ruano called from ED, stitched placed which controlled bleed - Recommended fistula revision - Dr Baldwin consulted, surgery tomorrow ESRD on HD - Dialysis as above - Has missed 2 sessions of dialysis - Renal high protein diet DM - Reportedly controlled on PO meds - SSI & hypoglycemic protocol - ACHS accuchecks CHF - Strict I&Os, 1800ml fluid restriction, daily wt - HH diet CAD - hold ASA, plavix. Continue Coreg - s/p 6 stent placement Code Status: DNR DVT ppx: hold due to bleeding and surgery schedule in AM PCP: Hany FMThiago H&P: Upper Level - Pertinent history 73 y/o F with ESRD, CHF, DM presents via EMS 2/2 bleeding fistula. Reportedly picked a scab and it began to bleed. Denies other complaints other than chills that occurred today. Sees nephro for HD MWF. Denies any other complaints. States she was told by the ED 2w ago she should be admitted, but left AMA. Currently stable in ED with bandages on L arm. A&Ox4 with VSS. - Pertinent findings PE GEN: NAD, CARDIO: RRR, No MRG LUNGS: CTAB, No wheezes MSK: b/l BKA SKIN: L fistula with bandage overlying w/o blood visualized. - Plan Date/Time: 01/20/19 5972 I, Blake Calloway, have evaluated this patient and agree with findings/plan as outlined by hospital intern resident. Pertinent changes/additions are listed here. 1. Acute Hemorrhage of AV fistula on L upper extremity- Dr Ruano has placed sutures over lesion and now hemorrhage has resolved. Dr Baldwin with surgery to operate on patient tomorrow. NPO at midnight. 2. ESRD on HD MWF - Will resume scheduled HD per nephrology. Tomorrow after surgery. 3. NIDDM - SSI & hypoglycemic protocol, ACHS accuchecks 4. CHF - I do not see an echocardiogram for her so unsure of the status. Will continiue to monitor I&Os, weight, and continue fluid restriction. Does not seem to have acute issues. 5. CAD - Hold asa, plavix, continue coreg. Hx/o 6 stent placements 6. PVD - S/p BKA x2, pt unable to ambulate. Code Status: DNR - discussed in detail with patient today DVT ppx: holding pharmacological ppx Addendum - Attending - Attending Attestation Date/Time: 01/20/19 4734 I personally evaluated the patient and discussed the management with Dr. Dougherty /Elli. I agree with the History, Examination, Assessment and Plan documented above with any addition or exceptions noted below. Patient stable. No active bleeding. Plan for surgery tomorrow for fistula revision. Continue home meds with exception of antiplatelet therapy. NPO at midnight.
[2019-01-20] MEDS ORDERED: Dextrose 50% Abboject 50 ML SYRINGE SLOW IVP PRN (12:06)
[2019-01-20] MEDS ORDERED: Dextrose 5% in Water 1,000 ML IV PRN (12:06)
[2019-01-20] MEDS ORDERED: HumaLOG 300 UNITS/3 ML VIAL SC PRN (12:06)
[2019-01-20] MEDS ORDERED: Acetaminophen 500 MG TAB ONE (12:10)
[2019-01-20] MEDS ORDERED: Acetaminophen 325 MG TAB PO PRN (16:50)
[2019-01-20] MEDS ORDERED: Isosorbide Mononitrate 20 MG TAB PO SCH (21:00)
--- NOTE | 2019-01-21 00:23 | CON ---
DATE OF CONSULTATION: 01/20/2019 REASON FOR CONSULT: Bleeding fistula. HISTORY: Ms. Pepe is a 73-year-old woman known to me from previous admissions. She has multiple medical problems including end-stage renal failure and peripheral vascular disease. She has been having problems with bleeding from her fistula for sometime and states that they constantly leave a bandage on it to keep it from bleeding. She took her bandage off at home today, which she does not usually do and it started bleeding. EMS came and placed a tourniquet and brought her into the ER. Dr. Ruano saw her in the emergency department and placed a suture, and she has not had any problems with bleeding since then. She states they have not been able to use that part of the fistula because of the bleeding issues. She did have some chills and dizziness this morning, but has otherwise been in her usual state of health. She states that she has body aches all over, but this has been going on for sometime. PAST MEDICAL HISTORY: Diabetes, peripheral vascular disease, deep venous thrombosis, GI bleeding, congestive heart failure, hypertension, end-stage renal failure, coronary artery disease, hypertensive cardiomyopathy, hypothyroidism, hyperlipidemia, history of GI bleeding. ALLERGIES: NO KNOWN DRUG ALLERGIES. PAST SURGICAL HISTORY: Right upper arm AV fistula placed in [place] 13 years ago and still functioning. Angioplasty and stenting of the right superficial femoral artery. Coronary artery angioplasty and stenting multiple times, bilateral lower extremity amputations, cataract surgery, endoscopy for GI bleeding. FAMILY HISTORY: Noncontributory. SOCIAL HISTORY: She does have a past history of tobacco use, but quit many years ago. She does not drink or use illicit drugs. REVIEW OF SYSTEMS: She has alternating diarrhea and constipation. Review of systems was otherwise negative except per HPI. PHYSICAL EXAMINATION: VITAL SIGNS: The patient has been afebrile with normal vital signs, saturating well on room air. GENERAL: Reveals a chronically ill-appearing woman, in no acute distress. She is not flushed or toxic in appearance. She is not jaundiced or icteric. HEENT: Unremarkable. NECK: Supple without lymphadenopathy or thyroid nodules. HEART: Regular in its rate and rhythm. I do not appreciate any murmurs, rubs, or gallops. LUNGS: Clear to auscultation. She has good air movement. ABDOMEN: Soft, nontender, and nondistended. No palpable masses or hernias. She has bilateral healed lower extremity amputations. Right arm has a good thrill in the upper arm cephalic fistula. Suture in the upper portion of the fistula is intact and there is no bleeding. She may have a small pseudoaneurysm at this location, but it is not large or eroding the skin. NEURO: No focal deficits. PSYCHIATRIC: Alert, oriented, and appropriate. LABORATORY DATA: White count is normal. Platelets are slightly low. Hematocrit is stable compared to prior admissions. BUN and creatinine are both elevated, but other electrolytes are okay. HOME MEDICATIONS: 1. Sensipar. 2. Flexeril. 3. Synthroid. 4. Zocor. 5. Aspirin. 6. Carvedilol. 7. Isordil. 8. Renvela. 9. She also has multiple p.r.n. medications including nitroglycerin tablets, tramadol, dicyclomine, Proctofoam, and Zofran. ASSESSMENT: Recurrent bleeding from right upper arm fistula. She likely has a small pseudoaneurysm at this location. I have recommended operative repair and Z-plasty closure of the defect. She has adequate length of fistula below this to continue with dialysis using her fistula and should not require placement of a catheter. Inherent risks include, but are not limited to bleeding, infection, risks of anesthesia, damage to the fistula and need for other procedures. She understands and accepts these risks and wishes to proceed. She has been proceeded for the operating room tomorrow since she ate breakfast this morning. All of her questions were answered. Job ID: [id number]
[2019-01-21] MEDS ORDERED: Ondansetron ODT 4 MG TAB SL PRN (02:29)
--- NOTE | 2019-01-21 03:25 | CON ---
DATE OF CONSULTATION: CONSULTING PHYSICIAN: Bindu Jaffe MD REQUESTING PHYSICIAN: ER physician and [facility]. IMPRESSION: 1. End-stage renal disease, on hemodialysis. 2. Access bleed, status post dislodgement of a scab on the patient's access. 3. Peripheral vascular disease, status post amputation. PLAN: 1. There is no emergency indication of dialysis today; therefore we will allow this patient to rest. 2. Reevaluate this patient's hemoglobin in the next 24 hours vis-a-vis the possibility of severe anemia in this patient. 3. Surgical consult for revision of the fistula. 4. Possible dialysis status post surgery. HISTORY: Is that of a 73-year-old female patient with end-stage renal disease, hemodialysis dependent, Friday, Friday and Friday who was getting ready for dialysis and scab overlying the access dislodged resulting in a profuse bleeding. The patient was then brought to the ER via EMS and decision was taken to secure the area of bleed with a pursestring suture prior to transferring the patient to Surgical Service. PAST MEDICAL HISTORY: Significant for end-stage renal disease, hypertension, peripheral vascular disease, type 2 diabetes, dyslipidemia. MEDICATIONS: Reviewed and as documented on [employer]. ALLERGIES: NO KNOWN DRUG ALLERGIES. FAMILY HISTORY: Not significantly related to presenting illness. REVIEW OF SYSTEMS: As documented in the body of history. All other systems were reviewed. PHYSICAL EXAMINATION: GENERAL: The patient was found not to be in any obvious distress, although we are still concerned because of the amount of blood loss, otherwise hemodynamically stable. HEENT: Unremarkable. CARDIOVASCULAR SYSTEM: First and second heart sounds were heard. RESPIRATORY SYSTEM: Clear to auscultation. RESPIRATORY: Clear to auscultation. DIGESTIVE: Revealed a benign abdomen with positive bowel sounds. EXTREMITIES: No peripheral edema. SKIN: No new gross rash. LYMPHATICS: No peripheral lymphadenopathy. SUMMARY: A 73-year-old female patient with end-stage renal disease, hemodialysis dependent who presented here status post access bleeding. Thank you for this consultation, I will follow with you. Job ID: [id number]
[2019-01-21] MEDS ORDERED: Levothyroxine Sodium 100 MCG TAB PO SCH (06:00)
[2019-01-21] MEDS ORDERED: Nitroglycerin 0.4 MG TAB (25 Tab Bottle) SL PRN (06:11)
--- NOTE | 2019-01-21 06:14 | PDOC.FM ---
- Objective MAR Reviewed: Yes Vital Signs & Weight: Vital Signs (12 hours) Temp Pulse Resp BP Pulse Ox 01/21/19 04:00 97.5 F L 82 20 99 01/21/19 00:00 97.5 F L 86 20 109/67 100 01/20/19 19:36 97.3 F L 86 20 101/65 100 Weight Weight 60.47 kg Result Diagrams: 01/20/19 10:17 01/21/19 06:19 Dx/Plan (1) Bleeding pseudoaneurysm of right brachiocephalic AV fistula Code(s): T82.838A - HEMORRHAGE DUE TO VASCULAR PROSTH DEV/GRFT, INIT Status: Acute (2) CHF (congestive heart failure) Code(s): I50.9 - HEART FAILURE, UNSPECIFIED Status: Acute (3) Status post below knee amputation of right lower extremity Code(s): Z89.511 - ACQUIRED ABSENCE OF RIGHT LEG BELOW KNEE Status: Acute (4) CAD (coronary artery disease) Code(s): I25.10 - ATHSCL HEART DISEASE OF [place] CORONARY ARTERY W/O ANG PCTRS Status: Chronic (5) Diabetes type 2, controlled Code(s): E11.9 - TYPE 2 DIABETES MELLITUS WITHOUT COMPLICATIONS Status: Chronic (6) Dyslipidemia Code(s): E78.5 - HYPERLIPIDEMIA, UNSPECIFIED Status: Chronic (7) ESRD (end stage renal disease) Code(s): N18.6 - END STAGE RENAL DISEASE Status: Chronic (8) Hypertension Code(s): I10 - ESSENTIAL (PRIMARY) HYPERTENSION Status: Chronic (9) Hypothyroidism Code(s): E03.9 - HYPOTHYROIDISM, UNSPECIFIED Status: Chronic (10) Peripheral vascular disease of lower extremity with ulceration Code(s): I73.9 - PERIPHERAL VASCULAR DISEASE, UNSPECIFIED; L97.909 - NON-PRS CHRONIC ULC UNSP PRT OF UNSP LOW LEG W UNSP SEVERITY Status: Chronic
[2019-01-21 07:06] LABS: ALT (SGPT) Less than 7 U/L (8-55); AST (SGOT) 7 U/L (5-34); Albumin 3.2 g/dL (3.4-4.8); Alkaline Phosphatase 75 U/L (40-150); Anion Gap 22 mmol/L (10-20); BUN (Urea Nitrogen) 26 mg/dL (9.8-20.1); Bilirubin, Total 0.4 mg/dL (0.2-1.2); Calc. Creatinine Clearance 8 mL/min (70-130); Calcium 9.8 mg/dL (7.8-10.44); Carbon Dioxide 21 mmol/L (23-31); Chloride 96 mmol/L (98-107); Estimated GFR-MDRD 8; Globulin 2.5 g/dL (2.4-3.5); Glucose 107 mg/dL (83-110); Potassium 4.8 mmol/L (3.5-5.1); Protein, Total 5.7 g/dL (6.0-8.3); Sodium 134 mmol/L (136-145)
[2019-01-21 07:17] VITALS: BP 139/56; TEMP 97.4
[2019-01-21 07:22] LABS: HBSAg Index 0.28 S/CO (0-0.99); Hep B Surf Ag Non-Reactive S/CO (NonReactive)
[2019-01-21] MEDS ORDERED: Lorazepam 2 MG/ML VIAL ONE (07:24)
[2019-01-21] MEDS ORDERED: Sevelamer Carbonate 800 MG TAB PO SCH (08:00)
--- NOTE | 2019-01-21 08:15 | PDOC.EVN ---
Event Note - Event Note Event Note: I was called by the residents for a code blue. A code green was called for a seizure previously. DNAR was confirmed. Upon arrival the patient was not breathing and without a pulse, with the monitor @ 31 BPM. Exam: Pupils nonreactive No heart sounds heart x 1 minute No breath sounds or chest rise > 1 minute BSUS with no sig organized activity TOD 741.
[2019-01-21] MEDS ORDERED: Carvedilol 6.25 MG TAB PO SCH (09:00)
[2019-01-21] MEDS ORDERED: Ondansetron ODT 4 MG TAB PO SCH (09:00)
[2019-01-21] MEDS ORDERED: Dicyclomine 20 MG TAB PO PRN (09:00)
[2019-01-21] MEDS ORDERED: Isosorbide Dinitrate 5 MG TAB PO SCH (09:00)
[2019-01-21] MEDS ORDERED: Carvedilol 3.125 MG TAB PO SCH (09:00)
--- NOTE | 2019-01-21 09:24 | PDOC.EVN ---
Event Note - Event Note Event Note: Progress Note of : PE: HEENT: pupils fixed and dilated Card: No pulse, no auscultated heart sounds, No cardiac movement on US Resp: No spontaneous respirations Neuro: No withdrawal to painful stimuli TOD: 0741 01/21/19 The family does not request an autopsy.
[2019-01-21 16:38] LABS: #Basophils 0.1 thou/uL (0.0-0.2); #Eosinphils 0.1 thou/uL (0.0-0.7); #Monocytes 0.7 thou/uL (0.11-0.59); #Neutrophils 4.5 thou/uL (1.40-6.50); %Basophils 0.7 % (0.0-1.0); %Eosinophils 0.7 % (0.0-10.0); %Monocytes 10.1 % (0.0-10.0); %Neutrophils 61.5 % (42.0-75.0); Hemoglobin 8.9 g/dL (12.0-16.0); Mean Corpuscular HGB CONC 29.1 g/dL (32.0-36.0); Mean Corpuscular Hemoglobin 27.2 pg (27.0-31.0); Mean Corpuscular Volume 93.5 fL (78.0-98.0); Mean Platelet Volume 12.5 fL (7.4-10.4); Platelet Count 116 thou/uL (130-400); RBC Distribution Width 16.7 % (11.5-14.5); Red Blood Cell (RBC) Count 3.26 mill/uL (4.20-5.40); White Blood Cell (WBC) Count 7.3 thou/uL (4.8-10.8)
[2019-01-21] MEDS ORDERED: Docusate 100 MG CAP PO SCH (21:00)
[2019-01-21] MEDS ORDERED: Atorvastatin Calcium 20 MG TAB PO SCH (21:00)
--- NOTE | 2019-01-21 22:45 | OP ---
DATE OF PROCEDURE: 01/20/2019 PROCEDURE: Suturing of the bleeding fistula. MEDICATION: Lidocaine 10%. DETAILS OF PROCEDURE: The area of bleed was identified and anesthetized with 1% lidocaine. Pressure was applied over the anterior anastomotic area and with a pursestring suture hemostasis was able to be maintained and patient did not show any further evidence of bleeding. Decision was then taken for the patient to undergo revision of the fistula and I did contact with the access surgeon in preparation for the surgical repair/revision of the fistula. The patient tolerated the procedure well. Job ID: [id number]
--- NOTE | 2019-01-22 15:03 | DIS ---
DATE OF ADMISSION: 01/20/2019 DATE OF DISCHARGE: 01/21/2019 SUMMARY: RESIDENT: 1. Katharine Dougherty MD, PGY-2. 2. Blake Calloway MD, PGY-3. DATE OF : 01/21/2019. TIME OF : 07:41. CAUSE OF : Seizures. SECONDARY DIAGNOSES: 1. End-stage renal disease on hemodialysis. 2. PVD. 3. Coronary artery disease status post stent. 4. Hyperlipidemia. 5. Hypertension. 6. Cardiac shunt right arm. 7. Wet gangrene. HISTORY: She was a 73-year-old female with past medical history of end-stage renal disease on hemodialysis, presented to the ED for evaluation of bleeding fistula. She follows with Dr. Ruano, outpatient hemodialysis Friday, Friday, and Friday. She had not received dialysis since Friday and had an episode of bleeding from her fistula that started the morning of admission. This had happened 2 times in the past. EMS placed a tourniquet and Dr. Ruano placed a stitch that resulted in hemostasis. Dr. Baldwin was consulted from the ED and there was a plan for fistula revision in the next morning. The patient has been made n.p.o. at midnight. Morning of 01/21/2019 around 7:15, flash del real was called for a reported seizure activity. DNR was confirmed. The patient was unresponsive, but heart rate initially in the 60s. Shortly after there was no pulse confirmed and monitor revealed PEA. Pupils were nonreactive. There were no heart sounds, no breath sounds or chest rise. Bedside ultrasound showed no significant organized activity. Family was notified and arrived at bedside later that morning. They did not request an autopsy. Job ID: [id number] [facility]
--- NOTE | 2019-01-29 05:35 | PQF ---
[facility] POST DISCHARGE CLINICAL DOCUMENTATION IMPROVEMENT CLARIFICATION FORM l Todays Date: 01/29/19 l Patients Name LOWELL MCCLOUD l l Admit Date 01/20/19 l Disch Date 01/21/19 Route Returner Name Hardik Caro Email: [email or web address] Cell: [phone] To be completed by Route Returner: Present Clinical Indicators - Signs / Symptoms Results and Location in Medical Record [ ] Documentation of: [ ] [ ] Documentation of: [ ] [ ] Documentation of: [ ] [ ] Documentation of: [ ] [ ] Risks [ ] [ ] [ ] Treatment [ ] Suturing of bleeding AV fistula Query for size (cm) of suture repair [ ] [ ] To be completed by Physician: MAKENNA BROUSSARD The documentation in this patients record requires clarification to ensure coding compliance and accuracy. Check the appropriate box and include in your discharge summary. [ ] [ ] [ ] [ ] Please check this box if this does not apply to this patient [ ] Unable to determine [ ] Other diagnosis: Review the following information and exercise your independent professional judgment in responding to the clarification. Based upon the clinical findings, risk factors, and treatment, please clarify if you are treating one of the above probable or suspected diagnoses. Physician Signature: Date Time MTDD
--- NOTE | 2019-02-06 15:44 | EKG ---
Test Reason : Blood Pressure : / mmHG Vent. Rate : 057 BPM Atrial Rate : 040 BPM P-R Int : 000 ms QRS Dur : 142 ms QT Int : 474 ms P-R-T Axes : 000 176 -59 degrees QTc Int : 461 ms Suspect arm lead reversal, interpretation assumes no reversal Undetermined rhythm Right bundle branch block , plus right ventricular hypertrophy Lateral infarct , age undetermined T wave abnormality, consider inferior ischemia Abnormal ECG Confirmed by CLARISA HUDSON ([id number]), food editor YISEL COLON ([id number]) on 02/06/2019 3:43:46 PM Referred By: Confirmed By:CLARISA HUDSON
== END 2019-01-21 07:41 | disposition expired ==
LOC: ERS 09:50 → ERHOLD 11:35 → T4-A 12:52
PROVIDERS: ADMIT Student in an Organized Health Care Education/Training Program; ATTEND Internal Medicine Nephrology
PROC: 05W Upper Veins, Revision (ICD-10-PCS; principal; 2019-01-20)
DX: T82.838A Hemorrhage due to vascular prosthetic devices, implants and grafts, initial encounter (principal); I13.2 Hypertensive heart and chronic kidney disease with heart failure and with stage 5 chronic kidney disease, or end stage renal disease; E11.22 Type 2 diabetes mellitus with diabetic chronic kidney disease; N18.6 End stage renal disease; I50.9 Heart failure, unspecified; I25.10 Atherosclerotic heart disease of native coronary artery without angina pectoris; E11.51 Type 2 diabetes mellitus with diabetic peripheral angiopathy without gangrene; F03.90 Unspecified dementia, unspecified severity, without behavioral disturbance, psychotic disturbance, mood disturbance, and anxiety; E78.5 Hyperlipidemia, unspecified; E03.9 Hypothyroidism, unspecified; E11.622 Type 2 diabetes mellitus with other skin ulcer; L97.909 Non-pressure chronic ulcer of unspecified part of unspecified lower leg with unspecified severity; R56.9 Unspecified convulsions; I42.8 Other cardiomyopathies; Z87.891 Personal history of nicotine dependence; Z66 Do not resuscitate; Z79.82 Long term (current) use of aspirin; Z79.899 Other long term (current) drug therapy; Z95.5 Presence of coronary angioplasty implant and graft; Z99.2 Dependence on renal dialysis; Z79.02 Long term (current) use of antithrombotics/antiplatelets
CPT/HCPCS: 36832; 80053 ×2; 82962 ×2; 85025 ×2; 85610; 85730; 87340; 93005; 99285; G0378 ×2; 36415; 36416; 85060; J2001; J2060; Q0162